=== PATIENT | female | born 1950 | race Caucasian/White ===

== ENCOUNTER 2020-06-13 11:36 | Outpatient (CLI) | payer MEDICARE, OTHER, SELFPAY ==
--- NOTE | ~2020-06-13 | XR_ITS ---
XR abdomen/kub 1V DATE: 06/13/2020 11:57 INDICATION: Low abdominal pain, nausea, constipation TECHNIQUE: AP projection COMPARISON: 07/09/2009 CT abdomen pelvis FINDINGS: There is no evidence of bowel obstruction. The psoas shadows are intact. No visceromegaly i s evident. Diffuse osteopenia. IMPRESSION: Nonspecific abdomen; no evidence of bowel obstruction Reviewed, dictated and finalized at Location A. Reviewed, dictated and finalized at location B.
[2020-06-13 12:49] LABS: Hematocrit 42.8 % (37.0-47.0); Hemoglobin 14.7 g/dL (12.0-15.0); Mean Corpuscular HGB Conc 34.3 g/dl (32-36); Mean Platelet Volume 9.7 fl (7.4-10.4); Platelet Count Result 353 k/mm3 (150-375); Red Cell Distribution Width 13.6 % (11.5-14.5); White Blood Count 9.3 K/mm3 (4.5-10.0)
[2020-06-13 13:17] LABS: Alanine Aminotransferase 16 U/L (4-35); Albumin Level 4.3 g/dL (3.5-5.1); Alkaline Phosphatase 78 U/L (38-126); Amylase 50 U/L (30-110); Anion Gap 8 mmol/L (8-16); Aspartate Amino Transferase 26 U/L (14-36); Bilirubin,Total 0.5 mg/dL (0.2-1.3); Blood Urea Nitrogen 8 mg/dL (7-17); Calcium 9.4 mg/dL (8.4-10.2); Carbon Dioxide 29 mmol/L (22-30); Chloride 96 mmol/L (98-107); Estimated Glomerular Filt Rate > 60; Glucose 100 mg/dL (65-105); Lipase 27 U/L (23-300); Potassium 3.9 mmol/L (3.4-5.0); Sodium 133 mmol/L (137-145)
== END 2020-06-13 11:37 | disposition home or self-care (01) ==
PROVIDERS: PCP Family Medicine; Visit Provider Family Medicine
DX: R10.9 Unspecified abdominal pain (principal)
CPT/HCPCS: 36415; 74018; 80053; 82150; 83690; 85027

== ENCOUNTER 2020-12-12 11:54 | Outpatient (CLI) | payer MEDICARE, OTHER, SELFPAY ==
--- NOTE | ~2020-12-12 | XR_ITS ---
EXAMINATION: XR hand LT 2V DATE: 12/12/2020 12:22 INDICATION: Left hand pain at the distal third metacarpal TECHNIQUE: Posteroanterior and lateral views of the left hand were obtained. COMPARISON: None. FINDINGS: Diffuse osteopenia. Bone alignment is normal. No fracture. Minimal to mild polyarticular osteoarthrit is most prominent at the first carpometacarpal and multiple predominantly distal interphalangeal join ts. No cortical erosions or periosteal reaction. Soft tissues are unremarkable. IMPRESSION: 1. No acute osseous abnormality. 2. 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 3. Diffuse osteopenia. Reviewed, dictated and finalized at location A. IMPRESSION: 1. No acute osseous abnormality. 2. Minimal to mild polyarticular osteoarthritis with typical distribution at th e left hand. 3. Diffuse osteopenia.
== END 2020-12-12 11:55 | disposition home or self-care (01) ==
LOC: ANHIMG 11:59
PROVIDERS: PCP Family Medicine; Visit Provider Family Medicine
DX: M85.842 Other specified disorders of bone density and structure, left hand (principal); M19.042 Primary osteoarthritis, left hand
CPT/HCPCS: 73120

== ENCOUNTER 2021-08-20 16:10 | Outpatient (CLI) | payer MEDICARE, OTHER, SELFPAY ==
[2021-08-20 17:00] LABS: Add Urine Microscopic? YES; Appearance Urine Slightly Cloudy (Clear); Bilirubin Urine 1+ (Negative); Blood Urine 3+ (Negative); Color Urine Red (Yellow); Glucose Urine UA Negative (Negative); Ketones Urine Negative (Negative); Leukocyte Esterase Ur 3+ LEU/UL (NEGATIVE); Nitrate Urine Positive (Negative); Protein Urine 3+ mg/dL (Negative); Specific Grav Ur 1.015 (1.001-1.035); pH Urine 8.5 (5.0-9.0)
== END 2021-08-20 16:11 | disposition home or self-care (01) ==
PROVIDERS: PCP Family Medicine; Visit Provider Nurse Practitioner Family
DX: N39.0 Urinary tract infection, site not specified (principal)
CPT/HCPCS: 81001; 87077; 87086; 87186

== ENCOUNTER → 2021-09-17 10:12 | Outpatient (REF) | payer MEDICARE, OTHER, SELFPAY | LOC: ANHLAB 10:12 | PROVIDERS: PCP Family Medicine; Visit Provider Nurse Practitioner | DX: L72.0 Epidermal cyst (principal) | CPT/HCPCS: 88307 ==

== ENCOUNTER 2022-11-07 10:12 | Outpatient (CLI) | payer MEDICARE, OTHER, SELFPAY ==
[2022-11-07 10:59] LABS: Appearance Urine Clear (Clear); Bacteria Urine 4+ /hpf; Bilirubin Urine Negative (Negative); Blood Urine 2+ (Negative); Color Urine Yellow (Yellow); Glucose Urine UA Negative (Negative); Ketones Urine Negative (Negative); Leukocyte Esterase Ur 3+ LEU/UL (NEGATIVE); Nitrate Urine Negative (Negative); Non Pathogenic Casts 0-2; Protein Urine Negative (Negative); RBC Urine 0-2 /hpf (0-2); Specific Grav Ur 1.004 (1.001-1.035); Squamous Epithelial Cell Urine None seen /hpf (Few); Urobilinogen Urine 0.2 mg/dL (<2.0); WBC Urine 51-100 /hpf (0-3)
[2022-11-07 11:01] LABS: Add Urine Microscopic? YES
== END 2022-11-07 10:13 | disposition home or self-care (01) ==
PROVIDERS: PCP Family Medicine; Visit Provider Physician Assistant
DX: N39.0 Urinary tract infection, site not specified (principal); R30.0 Dysuria; R31.9 Hematuria, unspecified
CPT/HCPCS: 81001; 87077; 87086; 87186

== ENCOUNTER 2023-03-12 09:54 | Outpatient (CLI) | payer MEDICARE, OTHER, SELFPAY ==
[2023-03-12 10:54] LABS: Appearance Urine Clear (Clear); Bilirubin Urine Negative (Negative); Blood Urine Negative (Negative); Color Urine Yellow (Yellow); Glucose Urine UA Negative (Negative); Ketones Urine Negative (Negative); Leukocyte Esterase Ur Negative LEU/UL (NEGATIVE); Nitrate Urine Negative (Negative); Protein Urine Negative (Negative); Specific Grav Ur 1.005 (1.001-1.035); Urobilinogen Urine 0.2 mg/dL (<2.0); pH Urine 7.5 (5.0-9.0)
[2023-03-12 10:55] LABS: Add Urine Microscopic? NO
[2023-03-12 11:06] LABS: Hematocrit 46.3 % (37.0-47.0); Hemoglobin 14.9 g/dL (12.0-15.0); Mean Corpuscular HGB Conc 32.2 g/dl (32-36); Mean Corpuscular Hemoglobin 31.2 pg (26-34); Mean Corpuscular Volume 96.9 fl (80-100); Mean Platelet Volume 9.5 fl (7.4-10.4); Platelet Count Result 363 k/mm3 (150-375); Red Blood Count 4.78 M/mm3 (4.2-5.4); Red Cell Distribution Width 13.7 % (11.5-14.5)
[2023-03-12 11:16] LABS: Alanine Aminotransferase 18 U/L (6-35); Albumin Level 4.2 g/dL (3.5-5.1); Alkaline Phosphatase 86 U/L (38-126); Anion Gap 6 mmol/L (8-16); Aspartate Amino Transferase 24 U/L (14-36); Bilirubin,Total 0.4 mg/dL (0.2-1.3); Blood Urea Nitrogen 8 mg/dL (7-17); Calcium 9.3 mg/dL (8.4-10.2); Carbon Dioxide 32 mmol/L (22-30); Chloride 99 mmol/L (98-107); Cholesterol 157 mg/dL (0-200); Estimated Glomerular Filt Rate > 60; Glucose 84 mg/dL (65-110); HDL Direct 53 mg/dL; Sodium 137 mmol/L (137-145); Triglycerides 138 mg/dL (<150)
[2023-03-12 11:27] LABS: LDL Cholesterol Direct 79 mg/dL
== END 2023-03-12 09:55 | disposition home or self-care (01) ==
PROVIDERS: PCP Family Medicine; Visit Provider Family Medicine
DX: H40.1190 Primary open-angle glaucoma, unspecified eye, stage unspecified (principal); E78.2 Mixed hyperlipidemia; I10 Essential (primary) hypertension; R53.83 Other fatigue
CPT/HCPCS: 36415; 80053; 80061; 81003; 84443; 85027

== ENCOUNTER 2023-07-21 11:50 | Outpatient (CLI) | payer MEDICARE, OTHER, SELFPAY ==
--- NOTE | ~2023-07-21 | XR_ITS ---
Left ankle Technique: AP, oblique, and lateral views were obtained. Clinical History: Pain Findings: No acute fracture or dislocation is seen. Osseous alignment is anatomic. Ankle mortise and other visualized joint spaces are preserved. Soft tissues are otherwise unremarkable. Impression: Unremarkable left ankle. Reviewed, dictated and finalized at location . Impression: Unremarkable left ankle.
== END 2023-07-21 11:51 | disposition home or self-care (01) ==
LOC: ANHIMG 11:54
PROVIDERS: PCP Family Medicine; Visit Provider Family Medicine
DX: M25.572 Pain in left ankle and joints of left foot (principal)
CPT/HCPCS: 73610

== ENCOUNTER 2023-11-19 13:17 | Outpatient (CLI) | payer MEDICARE, OTHER, SELFPAY ==
[2023-11-19 13:52] LABS: Add Urine Microscopic? NO; Appearance Urine Clear (Clear); Bilirubin Urine Negative (Negative); Blood Urine Negative (Negative); Color Urine Yellow (Yellow); Glucose Urine UA Negative (Negative); Ketones Urine Negative (Negative); Leukocyte Esterase Ur Negative LEU/UL (Negative); Nitrate Urine Negative (Negative); Protein Urine Negative (Negative); Specific Grav Ur 1.005 (1.001-1.035); Urobilinogen Urine 0.2 mg/dL (<2.0)
== END 2023-11-19 13:18 | disposition home or self-care (01) ==
PROVIDERS: PCP Family Medicine; Visit Provider Physician Assistant Medical
DX: R31.9 Hematuria, unspecified (principal); R30.0 Dysuria; R35.0 Frequency of micturition
CPT/HCPCS: 81003; 87086

== ENCOUNTER 2024-02-04 07:42 | Outpatient (CLI) | payer MEDICARE, OTHER, SELFPAY ==
[2024-02-04 08:14] LABS: Hemoglobin 15.6 g/dL (12.0-15.0); Mean Corpuscular HGB Conc 32.5 g/dl (32-36); Mean Corpuscular Hemoglobin 31.5 pg (26-34); Mean Platelet Volume 9.1 fl (7.4-10.4); Platelet Count Result 329 k/mm3 (150-375); Red Blood Count 4.95 M/mm3 (4.2-5.4); Red Cell Distribution Width 13.9 % (11.5-14.5)
[2024-02-04 08:16] LABS: Add Urine Microscopic? NO; Appearance Urine Clear (Clear); Bilirubin Urine Negative (Negative); Blood Urine Negative (Negative); Color Urine Yellow (Yellow); Glucose Urine UA Negative (Negative); Ketones Urine Negative (Negative); Leukocyte Esterase Ur Negative LEU/UL (Negative); Nitrate Urine Negative (Negative); Protein Urine Negative (Negative); Specific Grav Ur 1.006 (1.001-1.035); Urobilinogen Urine 0.2 mg/dL (<2.0)
[2024-02-04 08:53] LABS: Alanine Aminotransferase 19 U/L (6-35); Albumin Level 4.3 g/dL (3.5-5.1); Alkaline Phosphatase 96 U/L (38-126); Anion Gap 6 mmol/L (4-12); Aspartate Amino Transferase 37 U/L (14-36); Bilirubin,Total 0.4 mg/dL (0.2-1.3); Blood Urea Nitrogen 10 mg/dL (7-17); Calcium 9.6 mg/dL (8.4-10.2); Carbon Dioxide 33 mmol/L (22-30); Chloride 99 mmol/L (98-107); Cholesterol 162 mg/dL (0-200); Estimated Glomerular Filt Rate > 60; Glucose 83 mg/dL (65-110); HDL Direct 52 mg/dL; Sodium 138 mmol/L (137-145); Triglycerides 98 mg/dL (<150)
[2024-02-04 09:04] LABS: LDL Cholesterol Direct 85 mg/dL
== END 2024-02-04 07:43 | disposition home or self-care (01) ==
PROVIDERS: PCP Family Medicine; Visit Provider Family Medicine
DX: H40.1190 Primary open-angle glaucoma, unspecified eye, stage unspecified (principal); E78.2 Mixed hyperlipidemia; I10 Essential (primary) hypertension; R53.83 Other fatigue
CPT/HCPCS: 36415; 80053; 80061; 81003; 84443; 85027

== ENCOUNTER 2024-08-09 12:04 | Outpatient (CLI) | payer MEDICARE, OTHER, SELFPAY ==
--- OUTSIDE RECORDS SUMMARY | 2024-08-09 12:07 | XMS_ITS | Continuity of Care Document ---
Author Organization [facility] Address [address] [place] [address] Phone Care Team Providers Care Brake [employer] Name Role Phone Yoanna Bucio Unavailable Unavailable [...] Diagnoses Date Provider Providers Copied on Encounter [facility], [address], [place], [place], [address], [place] tel:[phone] SEC [facility] No Information 0 Rupinder Lenz. [address], [place], [address], [place]. tel:[phone] [facility], [address] [place] [address] [address], [place], [place], [address], [place] tel:[phone] SEC [facility] No Information Oct-2 1-201 0 Bucio Yoanna. [address] [facility] , [address], [place], [facility], [place]. tel:[phone] [facility], [address] [place] [address] [address], [place], [place], [address], [place] tel:[phone] [facility] No Information Oct-1 4-201 0 Barros OD Sawyer. [address] [facility] , [address], [place], [facility], [place]. tel:[phone] [facility], [address] [place] [address] [address], [place], [place], [address], [place] tel:[phone] [facility] No Information Oct-1 3-201 0 Bucio Yoanna. [address] [facility] , [address], [place], [facility], [place]. tel:[phone] Office/outpat ient Visit, [facility], [address] [place] [address] [address], [place], [place], [address], [place] tel:[phone] [facility] No Information Sep-2 4-201 0 Bucio Yoanna. [address] [facility] , [address], [place], [facility], [place]. tel:[phone] Office/outpat ient Visit, [facility], [address] [place] [address] [address], [place], [place], [address], [place] tel:[phone] [facility] No Information Derick-0 4-201 0 Sky Charlton. [address] [place] [address], [place], [facility], [place]. tel:[phone] Referring Provider: Zoltan pereira, [address] [place] [address], [place], [facility]. tel:[phone] Office/outpat ient Visit, Est [facility] Eye [facility], [address], [place], [place], [address], [place] tel:[phone] SEC [facility] No Information Mar-0 5-201 0 Krishnasamy Zoltan. [address] [facility] [address], [place], [facility], [place]. tel:[phone] [facility], [address], [place], [place], [address], [place] tel:[phone] SEC [facility] No Information Oct-1 6-200 9 Krishnasamy Zoltan. [address] [facility] [address], [place], [facility], [place]. tel:[phone] [facility], [address], [place], [place], [address], [place] tel:[phone] [facility] No Information Sep-2 5-200 9 Krishnasamy Zoltan. [address] [facility] [address], [place], [facility], [place]. tel:[phone] [facility], [address], [place], [place], [address], [place] tel:[phone] SEC [facility] No Information Sep-1 8-200 9 Krishnasamy Zoltan. [address] [facility] [address], [place], [facility], [place]. tel:[phone] [facility], [address], [place], [place], [address], [place] tel:[phone] [facility] No Information Sep-1 7-200 9 Krishnasamy Zoltan. [address] [facility] [address], [place], [facility], [place]. tel:[phone] Referring Provider: Gilbert Trevino MD, [address], [place], [address]. tel:[phone] [facility], [address], [place], [place], [address], [place] tel:[phone] SEC [facility] No Information 9-200 9 Sky Charlton. [address] [employer] [facility] 102, [place], [address], [place]. tel:[phone] Referring Provider: Froy Vu, [address] [facility] [address], [place], [address]. tel:[phone] Family History Family Member Type Diagnosis Age At Onset No Information Payers Payer name Insurance type Covered libertarian ID Authoriza tion(s) No Information Social History [...]
[2024-08-09 12:35] LABS: Alanine Aminotransferase 18 U/L (6-35); Albumin Level 4.3 g/dL (3.5-5.1); Alkaline Phosphatase 78 U/L (38-126); Anion Gap 5 mmol/L (4-12); Aspartate Amino Transferase 29 U/L (14-36); Bilirubin,Total 0.4 mg/dL (0.2-1.3); Blood Urea Nitrogen 7 mg/dL (7-17); Calcium 9.2 mg/dL (8.4-10.2); Carbon Dioxide 33 mmol/L (22-30); Chloride 100 mmol/L (98-107); Estimated Glomerular Filt Rate > 60; Glucose 83 mg/dL (65-110); Sodium 138 mmol/L (137-145)
== END 2024-08-09 12:05 | disposition home or self-care (01) ==
LOC: ANHLAB 12:05
PROVIDERS: PCP Family Medicine; Visit Provider Family Medicine
DX: F41.9 Anxiety disorder, unspecified (principal); I10 Essential (primary) hypertension
CPT/HCPCS: 36415; 80053

== ENCOUNTER 2024-11-12 11:11 | Emergency (ER) | payer MEDICARE, OTHER, SELFPAY ==
[2024-11-12 11:21] VITALS: BP 149/81; PULSE 98; RESP 18; TEMP 36.3; O2SAT 98
--- NOTE | 2024-11-12 11:35 | ED_ITS ---
HPI - Wound/Laceration General Chief Complaint: Skin/Abscess/Foreign Body Stated Complaint: LT Leg Pain / Fall Time Seen by Provider: 11/12/24 11:25 Source: patient and family Mode of arrival: ambulatory Limitations: no limitations History of Present Illness HPI narrative: Sharla is a 74-year-old female patient presenting to the clinic today with complaints of a wound to her left leg. She reports she fell 9 days ago and cut her leg. Has a 4 x 4 cm flap laceration to the left lower tib-fib. Some bloody drainage with increased redness and swelling over the area. Patient reports that it is more painful and more red today. Seen her PCP on and was prescribed doxycycline and told to use Vaseline to the wound. Has follow up appt with Dr. Gallagher on Thursday for wound care. She denies any fevers, chills, body aches. Related Data Home Medications ?Medication ?Instructions ?Recorded ?Confirmed ?Last Taken ?Type latanoprost 0.005 % eye drops 1 drop ophthalmic (eye) DAILY 03/09/19 11/12/24 Unknown History Allergies Allergy/AdvReac Type Severity Reaction Status Date / Time ciprofloxacin AdvReac Intermediate Abdominal Verified 11/12/24 11:22 Pain risedronate sodium AdvReac Intermediate Abdominal Verified 11/12/24 11:22 Pain Review of Systems Review of Systems: Pertinent positives per HPI. Patient denies any fever, chills, rash, headache, visual changes, dizziness, cough, runny nose, sore throat, shortness of breath, chest pain, palpitations, nausea, vomiting, diarrhea, constipation, abdominal pain, or any urinary issues. [facility] Past Medical History Medical History Smoking Family History Family History Sibling Hypertension Family history of elevated blood lipids Family history of lymphoma Mother Family history of lupus erythematosus Social History Social History Social History: Smoking packs per day: 0.5 Smoking cigarettes per day: 10.0 Years smoked: 50 Smoking pack-years: 25.00 Smoking status: Current every day smoker Tobacco type: cigarettes Second hand tobacco smoke exposure: No Alcohol intake: never Substance use: never Substance use type: does not use Do You Feel Safe in your Home?: Yes Lack of Transportation: No Lack of Food: Never True Current Housing: I Have Housing Concerned About Future Housing: No Difficulty Paying Gas/Electric Bills: No Difficulty Paying for Meds: No Currently Unemployed: YES Education: Don't Know Difficulty w/ Childcare or Family Care: No Living arrangements: with family Occupation/Education: retired Gender identity (if verbalized by the patient): Female Sexual Orientation (if Verbalized by the Patient): Straight or Heterosexual Comments At the time of my signature, I reviewed and agree with the nursing past medical, surgical, social, and family history. There is no relevant family history pertinent to the patient complaint. Exam Narrative: General: Well-developed, well nourished, in no apparent distress Head: Normocephalic, atraumatic. Cardio: Regular rate and rhythm, s1 and s2 normal, no murmur appreciated. Resp: Clear to auscultation bilaterally, no rhonchi, rales, wheezing or rubs. Integumentary: [place], warm, and dry, [id number] flap laceration with partial loss of skin to the left lower tib-fib. Area is red and swollen and tender to palpation with mild erythema. Noactive discharge at this time. Wound culture was obtained Course Course Emergency Course: Portions of this record may have been created with voice recognition software. Level of Care: Express Care Visit Vital Signs Vital signs: Vital Signs Temperature 36.3 C L 11/12/24 11:21 Pulse Rate 98 11/12/24 11:21 Respiratory Rate 18 11/12/24 11:21 Blood Pressure 149/81 H 11/12/24 11:21 Pulse Oximetry 98 11/12/24 11:21 Oxygen Delivery Room Air 11/12/24 11:21 Temperature 36.3 C L 11/12/24 11:21 Pulse Rate 98 11/12/24 11:21 Respiratory Rate 18 11/12/24 11:21 Blood Pressure 149/81 H 11/12/24 11:21 Pulse Oximetry 98 11/12/24 11:21 Oxygen Delivery Room Air 11/12/24 11:21 Vital signs reviewed MDM - Wound/Laceration MDM Narrative Medical decision making narrative: At the time of visit patient is resting comfortably on the exam table. Patient appears to be nontoxic. Complaints of a wound to her left leg. She reports she fell 9 days ago and cut her leg. Has a 4 x 4 cm flap laceration to the left lower tib-fib. Some bloody drainage with increased redness and swelling over the area. Patient reports that it is more painful and more red today. Seen her PCP on and was prescribed doxycycline and told to use Vaseline to the wound. She called the PCP office and they told her to come in to be evaluated. On exam patient has a 4cmx 4cm flap laceration with redness and swelling around the wound, mild erythema. Tenderness to palpation without induration, no palpable abscess. Patient was given follow-up appointment for Dr. Gallagher on Thursday. Wound was cleansed using antiseptic wound wash and a Q-tip was used to straighten out the flap of the wound and place down on the wound bed. Triple antibiotic ointment was then placed over the wound and a nonstick Telfa was applied secured with Coban. Patient tolerated well. Wound culture was obtained and sent to lab. Will have patient continue taking the doxycycline and add cephalexin and mupirocin cream to the antibiotic regimen. Labs: Wound culture obtained and sent to the lab Plan: I suspect patient has a wound infection. Will add cephalexin and mupirocin to the antibiotic regimen. Wound was cleansed and dressed as discussed above. Wound culture was sent to the lab. Have patient follow-up with Dr. Gallagher scheduled. Supportive measures were discussed with the patient and they voiced understanding discharge instructions and agrees to treatment plan. Return precautions reviewed Differential Diagnosis Differential diagnosis: Likely laceration, abscess, abrasion, avulsion of skin and other (Wound infection) Discharge Plan Discharge Clinical Impression: Wound infection Patient Disposition: Home Condition: Stable Instructions: Antibiotic Form, Wound Infection (ED) Additional Instructions: Wound culture was obtained in the clinic today. Change dressings twice daily-apply mupirocin cream to the affected area twice daily Continue taking doxycycline as prescribed and start cephalexin has prescribed Keep wound clean and dry May wash daily with soap and water and pat dry Watch for signs and symptoms of infection- redness, streaking, swelling, purulent discharge, or increase in pain. Follow up with your PCP for suture removal or return to the Express care. Patient Language: Thai Prescriptions: New cephalexin 500 mg capsule 500 mg PO Q8H 7 Days Qty: 21 0RF mupirocin [Centany] 2 % ointment 1 applic topical BID 7 Days Qty: 22 0RF No Action alprazolam [Xanax] 0.5 mg tablet 0.5 mg PO TID Qty: 270 0RF doxycycline hyclate 100 mg tablet 100 mg PO BID Qty: 14 0RF ondansetron 4 mg tablet,disintegrating 4 mg PO Q8H PRN (Reason: nausea and vomiting) Qty: 14 0RF latanoprost 0.005 % drops 1 drop EACH EYE DAILY atorvastatin 10 mg tablet See Rx Instructions .ROUTE .COMPLEX Qty: 90 3RF Dose Instruction: TAKE 1 TABLET BY MOUTH EVERY DAY Rx Instructions: TAKE 1 TABLET BY MOUTH EVERY DAY benazepril 20 mg tablet See Rx Instructions .ROUTE .COMPLEX Qty: 90 3RF Dose Instruction: TAKE 1 TABLET BY MOUTH EVERY DAY Rx Instructions: TAKE 1 TABLET BY MOUTH EVERY DAY fluconazole 150 mg tablet 150 mg PO ONCE Qty: 1 0RF Rx Instructions: as a single dose omeprazole 20 mg capsule,delayed release(DR/EC) See Rx Instructions .ROUTE .COMPLEX Qty: 90 3RF Dose Instruction: TAKE 1 CAPSULE BY MOUTH EVERY DAY Rx Instructions: TAKE 1 CAPSULE BY MOUTH EVERY DAY Follow-up/Referrals: Gilbert Trevino MD [Primary Care Provider, Family Practice] Time of Disposition: 11:41 Quality NIHSS Nursing Documentation ED NIHSS nursing documentation: reviewed/agree
== END 2024-11-12 11:45 | disposition home or self-care (01) ==
PROVIDERS: Emergency Provider Nurse Practitioner Family; PCP Family Medicine
DX: S81.812A Laceration without foreign body, left lower leg, initial encounter (principal); L08.9 Local infection of the skin and subcutaneous tissue, unspecified; W19.XXXA Unspecified fall, initial encounter; F17.210 Nicotine dependence, cigarettes, uncomplicated
CPT/HCPCS: 87070; 87075; 87205; 99213; G0463

== ENCOUNTER 2024-11-18 12:32 | Emergency (ER) | payer MEDICARE, OTHER, SELFPAY ==
--- OUTSIDE RECORDS SUMMARY | 2010-02-07 09:45 | XMS_ITS | Continuity of Care Document ---
Author Organization [facility] Address [address] [place] [address] Phone Care Team Providers Care Auto Specialty Services Manager Name Role Phone Yoanna Bucio Unavailable Unavailable Procedures Procedure Date Post-op Follow-up Visit Post-op Follow-up Visit Post-op Follow-up Visit Remove Cataract, Insert Lens Office/outpatient Visit, Est Office/outpatient Visit, Est Office/outpatient Visit, Est Post-op Follow-up Visit Post-op Follow-up Visit Post-op Follow-up Visit Remove Cataract, Insert Lens Eye Exam, New Patient IOLMaster Cataract Kit SEC Tax - Medical Advance Directives Directive Yes / No Effective Date File Name No Information Encounters Encounter Description Practice Location Reason(s) For Visit Diagnoses Date Provider Providers Copied on Encounter [facility], [address], [place], [place], [address], [place] tel:[phone] [facility] No Information 0 Rupinder Lenz. [address], [place], [address], [place]. tel:[phone] [facility], [address] [place] [address] [address], [place], [place], [address], [place] tel:[phone] [facility] No Information Oct-2 1-201 0 Bucio Yoanna. [address] [facility] , [address], [place], [place], [facility], [place]. tel:[phone] [facility], [address] [place] [address] [address], [place], [place], [address], [place] tel:[phone] [facility] No Information Oct-1 4-201 0 Barros OD Sawyer. [address] [facility] , [address], [place], [facility], [place]. tel:[phone] [facility], [address] [place] [address] [address], [place], [place], [address], [place] tel:[phone] [facility] No Information Oct-1 3-201 0 Bucio Yoanna. [address] [facility] , [address], [place], [facility], [place]. tel:[phone] Office/outpat ient Visit, [facility], [address] [place] [address] [address], [place], [place], [address], [place] tel:[phone] [facility] No Information Sep-2 4-201 0 Bucio Yoanna. [address] [facility] , [address], [place], [facility], [place]. tel:[phone] Office/outpat ient Visit, [facility], [address] [place] [address] [address], [place], [place], [address], [place] tel:[phone] [facility] No Information Derick-0 4-201 0 Sky Charlton. [address] [place] [address], [place], [facility], [place]. tel:[phone] Referring Provider: Zoltan pereira, [address] [place] [address], [place], [facility]. tel:[phone] Office/outpat ient Visit, Est [facility] Eye [facility], [address], [place], [place], [address], [place] tel:[phone] [facility] No Information Mar-0 5-201 0 Krishnasamy Zoltan. [address] [facility] [address], [place], [facility], [place]. tel:[phone] [facility] Eye [facility], [address], [place], [place], [address], [place] tel:[phone] [facility] No Information Oct-1 6-200 9 Krishnasamy Zoltan. [address] [facility] [address], [place], [facility], [place]. tel:[phone] [facility], [address], [place], [place], [address], [place] tel:[phone] [facility] No Information Sep-2 5-200 9 Krishnasamy Zoltan. [address] [facility] [address], [place], [facility], [place]. tel:[phone] [facility], [address], [place], [place], [address], [place] tel:[phone] [facility] No Information Sep-1 8-200 9 Krishnasamy Zoltan. [address] [facility] [address], [place], [facility], [place]. tel:[phone] [facility], [address], [place], [place], [address], [place] tel:[phone] [facility] No Information Sep-1 7-200 9 Krishnasamy Zoltan. [address] [facility] [address], [place], [facility], [place]. tel:[phone] Referring Provider: Gilbert Trevino MD, [address], [place], [address]. tel:[phone] [facility] Eye [facility], [address], [place], [place], [address], [place] tel:[phone] [facility] No Information 9-200 9 Sky Charlton. [address] [facility] [address], [place], [address], [place]. tel:[phone] Referring Provider: Froy Vu, [address] [facility] [address], [place], [address]. tel:[phone] Family History Family Member Type Diagnosis Age At Onset No Information Payers Payer name Insurance type Covered democrat ID Authoriza tion(s) No Information Social History Type Description Quantity Date Captured Comments Sex Female Smoking Status No Information Chief Complaint And Reason For Visit No Information Reason For Referral Reason For Referral No Information History Of Present Illness Encounter Date Complaint History Of Prese nt Illness No Information Functional Status Date Functional Assessmen t No Information Instructions Date Instruction Additional Infor mation No Information Assessments Type Assessment Date No Information Patient Care Teams Name Effective Dates (start - stop) Status Members No Information
--- OUTSIDE RECORDS SUMMARY | 2010-02-07 09:45 | XMS_ITS | Continuity of Care Document ---
Author Organization [facility] Address [address] [place] [address] Phone Care Team Providers Care Progressive Care Nurse Name Role Phone Yoanna Bucio Unavailable Unavailable [...] Diagnoses Date Provider Providers Copied on Encounter [facility], [address], [place], [place], [address], [place] tel:[phone] SEC [facility] No Information 0 Rupinder Lenz. [address], [place], [address], [place]. tel:[phone] [facility], [address] [place] [address] [address], [place], [place], [address], [place] tel:[phone] SEC [facility] No Information Oct-2 1-201 0 Bucio Yoanna. [address] [facility] , [address], [place], [facility], [place]. tel:[phone] [facility], [address] [place] [address] [address], [place], [place], [address], [place] tel:[phone] [facility] No Information Oct-1 4-201 0 Barros OD Sawyer. [address] [facility] [address], [place], [facility], [place]. tel:[phone] [facility], [address] [place] [address] [address], [place], [place], [address], [place] tel:[phone] [facility] No Information Oct-1 3-201 0 Bucio Yoanna. [address] [facility] [address], [place], [facility], [place]. tel:[phone] Office/outpat ient Visit, [facility], [address] [place] [address] [address], [place], [place], [address], [place] tel:[phone] [facility] No Information Sep-2 4-201 0 Bucio Yoanna. [address] [facility] [address], [place], [facility], [place]. tel:[phone] Office/outpat ient Visit, [facility], [address] [place] [address] [address], [place], [place], [address], [place] tel:[phone] [facility] No Information Derick-0 4-201 0 Sky Charlton. [address] [place] [address], [place], [facility], [place]. tel:[phone] Referring Provider: Zoltan pereira, [address] [place] [address], [place], [facility]. tel:[phone] Office/outpat ient Visit, Est [facility] Eye [facility], [address], [place], [place], [address], [place] tel:[phone] SEC [facility] No Information Mar-0 5-201 0 Krishnasamy Zoltan. [address] [facility] [address], [place], [facility], [place]. tel:[phone] [facility] Eye [facility], [address], [place], [place], [address], [place] tel:[phone] SEC [facility] No Information Oct-1 6-200 9 Krishnasamy Zoltan. [address] [facility] [address], [place], [facility], [place]. tel:[phone] [facility], [address], [place], [place], [address], [place] tel:[phone] [facility] No Information Sep-2 5-200 9 Krishnasamy Zoltan. [address] [facility] [address], [place], [facility], [place]. tel:[phone] [facility], [address], [place], [place], [address], [place] tel:[phone] SEC [facility] No Information Sep-1 8-200 9 Krishnasamy Zoltan. [address] [facility] [address], [place], [facility], [place]. tel:[phone] [facility], [address], [place], [place], [address], [place] tel:[phone] [facility] No Information Sep-1 7-200 9 Krishnasamy Zoltan. [address] [facility] [address], [place], [facility], [place]. tel:[phone] Referring Provider: Gilbert Trevino MD, [address], [place], [address]. tel:[phone] [facility] Eye [facility], [address], [place], [place], [address], [place] tel:[phone] SEC [facility] No Information 9-200 9 Sky Charlton. [address] [employer] [facility] [address], [place], [address], [place]. tel:[phone] Referring Provider: Froy Vu, [address] [facility] [address], [place], [address]. tel:[phone] Family History Family Member Type Diagnosis Age At Onset No Information Payers Payer name Insurance type Covered republican ID Authoriza tion(s) No Information Social History [...]
[2024-11-18 12:58] VITALS: BP 163/83; PULSE 100; RESP 14; TEMP 36.8; O2SAT 95
--- NOTE | 2024-11-18 13:53 | ED.GENADULT ---
HPI - General Adult General Chief complaint: Extremity Injury, Lower Stated complaint: leg injury Time Seen by Provider: 11/18/24 13:09 History of Present Illness HPI narrative: 74-year-old female present to the emergency department for evaluation for a chronic wound on her left lower extremity. Patient has had follow-up with Plastic surgery, urgent care, and her primary care physician. Patient was initially started on doxycycline, then switched to Keflex and has now been on Bactrim for the past 2 days. Patient does have cultures and sensitivities that do show it is sensitive to Bactrim. Patient has only been on Bactrim for 2 doses of antibiotic. Related Data Home Medications ?Medication ?Instructions ?Recorded ?Confirmed ?Last Taken ?Type latanoprost 0.005 % eye drops 1 drop ophthalmic (eye) DAILY 03/09/19 11/12/24 Unknown History Allergies Allergy/AdvReac Type Severity Reaction Status Date / Time ciprofloxacin AdvReac Intermediate Abdominal Verified 11/18/24 13:01 Pain risedronate sodium AdvReac Intermediate Abdominal Verified 11/18/24 13:01 Pain Review of Systems Review of Systems: All systems reviewed & are unremarkable except as noted in HPI and below PMFSH Past Medical History Medical History Smoking Family History Family History Sibling Hypertension Family history of elevated blood lipids Family history of lymphoma Mother Family history of lupus erythematosus Social History Social History Social History: Smoking packs per day: 0.5 Smoking cigarettes per day: 10.0 Years smoked: 50 Smoking pack-years: 25.00 Smoking status: Current every day smoker Tobacco type: cigarettes Second hand tobacco smoke exposure: No Alcohol intake: never Substance use: never Substance use type: does not use Do You Feel Safe in your Home?: Yes Lack of Transportation: No Lack of Food: Never True Current Housing: I Have Housing Concerned About Future Housing: No Difficulty Paying Gas/Electric Bills: No Difficulty Paying for Meds: No Currently Unemployed: YES Education: Don't Know Difficulty w/ Childcare or Family Care: No Living arrangements: with family Occupation/Education: retired Gender identity (if verbalized by the patient): Female Sexual Orientation (if Verbalized by the Patient): Straight or Heterosexual Exam Narrative: APPEARANCE: Well appearing, no pain, no distress, well-nourished. HEAD: normocephalic, atraumatic. EYES: PERRLA/EOMI, conjunctivae clear. NOSE: Normal no drainage EARS:TMS clear with good light reflex. THROAT: Pharynx clear, no exudate. NECK: Supple. No adenopathy, no masses. RESPIRATORY: Airway patent, respirations nonlabored. Clear to auscultation bilaterally, no rales, rhonchi, wheezing. CARDIOVASCULAR: Regular rate and rhythm without murmurs rubs or gallops. ABDOMINAL: Soft, nontender, nondistended, normal bowel sounds MUSCULOSKELETAL: Moves all extremities. Strength/ROM intact, No edema, No calf tenderness. NEURO: Alert. Cranial nerves II through XII intact. Good gait. Good coordination SKIN: Chronic left lower extremity anterior zhu wound, mild surrounding erythema no purulence Course Vital Signs Vital signs: Vital Signs Temperature 98.3 F 11/18/24 12:58 Pulse Rate 100 11/18/24 12:58 Respiratory Rate 14 11/18/24 12:58 Blood Pressure 163/83 H 11/18/24 12:58 Pulse Oximetry 95 11/18/24 12:58 Oxygen Delivery Room Air 11/18/24 12:58 Temperature 97.8 F 11/18/24 14:00 Pulse Rate 76 11/18/24 14:00 Respiratory Rate 16 11/18/24 14:00 Blood Pressure 132/74 11/18/24 14:00 Pulse Oximetry 98 11/18/24 14:00 Oxygen Delivery Room Air 11/18/24 14:00 Medical Decision Making [facility] Narrative Medical decision making narrative: 74-year-old female presents to the emergency department for evaluation of a lower extremity wound. Patient's recent wound cultures were sensitive to Bactrim. Patient is alert been on Bactrim for 2 doses. Patient was offered admission if she felt that the wound was rapidly worsening but patient felt that it was not rapidly worsening and patient strongly prefers to be discharged home. Patient was advised to continue her Bactrim. All questions were addressed. Differential Diagnosis Differential Diagnosis: Abscess, cellulitis, chronic wound Vital Signs Vital Signs: Vital Signs Temperature 98.3 F 11/18/24 12:58 Pulse Rate 100 11/18/24 12:58 Respiratory Rate 14 11/18/24 12:58 Blood Pressure 163/83 H 08/29/25 12:58 Pulse Oximetry 95 11/18/24 12:58 Oxygen Delivery Room Air 11/18/24 12:58 Temperature 97.8 F 11/18/24 14:00 Pulse Rate 76 11/18/24 14:00 Respiratory Rate 16 11/18/24 14:00 Blood Pressure 132/74 11/18/24 14:00 Pulse Oximetry 98 11/18/24 14:00 Oxygen Delivery Room Air 11/18/24 14:00 Discharge Plan Discharge Clinical Impression: Chronic wound Patient Disposition: Home Condition: Stable Instructions: Antibiotic Form Additional Instructions: Your wound cultures do show that the bacteria is sensitive to Bactrim, the most recent antibiotic you were started on. Continue this antibiotic. Continue have close follow-up with your primary care physician and continue to have follow-up with Plastic surgery. If you have any worsening symptoms then please call or return to the emergency department. Patient Language: Wolof Prescriptions: No Action mupirocin [Centany] 2 % ointment 1 applic topical BID 7 Days Qty: 22 0RF alprazolam [Xanax] 0.5 mg tablet 0.5 mg PO TID Qty: 270 0RF ondansetron 4 mg tablet,disintegrating 4 mg PO Q8H PRN (Reason: nausea and vomiting) Qty: 14 0RF latanoprost 0.005 % drops 1 drop EACH EYE DAILY atorvastatin 10 mg tablet See Rx Instructions .ROUTE .COMPLEX Qty: 90 3RF Dose Instruction: TAKE 1 TABLET BY MOUTH EVERY DAY Rx Instructions: TAKE 1 TABLET BY MOUTH EVERY DAY benazepril 20 mg tablet See Rx Instructions .ROUTE .COMPLEX Qty: 90 3RF Dose Instruction: TAKE 1 TABLET BY MOUTH EVERY DAY Rx Instructions: TAKE 1 TABLET BY MOUTH EVERY DAY fluconazole 150 mg tablet 150 mg PO ONCE Qty: 1 0RF Rx Instructions: as a single dose omeprazole 20 mg capsule,delayed release(DR/EC) See Rx Instructions .ROUTE .COMPLEX Qty: 90 3RF Dose Instruction: TAKE 1 CAPSULE BY MOUTH EVERY DAY Rx Instructions: TAKE 1 CAPSULE BY MOUTH EVERY DAY sulfamethoxazole-trimethoprim [Bactrim DS] 800-160 mg tablet 1 tablet PO Q12H Qty: 14 0RF Follow-up/Referrals: Gilbert Trevino MD [Primary Care Provider, Family Practice]
[2024-11-18 14:00] VITALS: BP 132/74; PULSE 76; RESP 16; TEMP 36.6; O2SAT 98
== END 2024-11-18 14:04 | disposition home or self-care (01) ==
PROVIDERS: Emergency Provider Emergency Medicine; PCP Family Medicine
DX: L98.8 Other specified disorders of the skin and subcutaneous tissue (principal); F17.210 Nicotine dependence, cigarettes, uncomplicated
CPT/HCPCS: 99281